=== PATIENT | female | born 1995 ===

== ENCOUNTER 2020-08-28 12:07 | Outpatient (CLI) | payer MEDICAID ==
[~2020-08-28] VITALS: Ht 157.5 cm; Wt 70.4 kg
[2020-08-28] MEDS ORDERED: CALCIUM CARBONATE 500 MG TAB.CHEW ONE (12:41)
[2020-08-28 12:49] LABS: AMPHETAMINE SCREEN, URINE Negative (Negative); BARBITURATE SCREEN, URINE Negative (Negative); BENZODIAZEPINE SCREEN, URINE Negative (Negative); CANNABINOID SCREEN, URINE Positive (Negative); COCAINE SCREEN, URINE Negative (Negative); METHADONE SCREEN, URINE Negative (Negative); OPIATE SCREEN, URINE Negative (Negative)
[2020-08-28 12:54] LABS: MICROSCOPIC INDICATED
[2020-08-28] MEDS ORDERED: ONDANSETRON 2MG/ML, 2ML IVPush PRN (13:00)
[2020-08-28] MEDS ORDERED: LACTATED RINGERS 1,000 ML IVBOLUS ONE (13:00)
[2020-08-28] MEDS ORDERED: D5%-LACTATED RINGERS 500 ML IV SCH (13:00)
[2020-08-28] MEDS ORDERED: FAMOTIDINE 20 MG TABLET ONE (14:05)
[2020-08-28] MEDS ORDERED: FAMOTIDINE 10 MG TAB PO ONE (14:30)
== END 2020-08-28 14:30 | disposition home or self-care (01) ==
LOC: LDOP 12:07
PROVIDERS: ATTEND Obstetrics & Gynecology
DX: O21.2 Late vomiting of pregnancy (principal); O26.893 Other specified pregnancy related conditions, third trimester; R19.7 Diarrhea, unspecified; Z3A.37 37 weeks gestation of pregnancy
CPT/HCPCS: 59025; 80307; 81001; 96360; 96361; J7120; J7121

== ENCOUNTER 2020-09-12 02:39 | Inpatient (IN) | payer MEDICAID ==
[~2020-09-12] VITALS: Ht 157.5 cm; Wt 73.0 kg
[2020-09-12] MEDS ORDERED: TERBUTALINE 1 MG/ML, 1ML SQ PRN (03:30)
[2020-09-12] MEDS ORDERED: FENTANYL PF 100 MCG/2ML IVPush PRN (03:30)
[2020-09-12] MEDS ORDERED: TERBUTALINE 1 MG/ML, 1ML IVPush PRN (03:30)
[2020-09-12] MEDS ORDERED: CALCIUM CARBONATE 500 MG TAB.CHEW PO PRN (03:30)
[2020-09-12] MEDS ORDERED: FENTANYL PF 100 MCG/2ML IV PRN (03:30)
[2020-09-12] MEDS ORDERED: ONDANSETRON 2MG/ML, 2ML IVPush PRN (03:30)
[2020-09-12] MEDS ORDERED: D5%-LACTATED RINGERS 1,000 ML IV SCH (03:30)
[2020-09-12] MEDS ORDERED: OXYTOCIN 30U/ 0.9% NaCL 500ML 500 ML IV PRN (03:30)
[2020-09-12] MEDS: LACTATED RINGERS 1,000 ML IV SCH ×2 (03:30→04:10)
[2020-09-12] MEDS ORDERED: NEWBORN KIT ONE (03:34)
[2020-09-12] MEDS ORDERED: MISOPROSTOL 200 MCG TABLET ONE (03:34)
[2020-09-12 03:45] LABS: BASOPHILS % (AUTO) 1 % (0-1); EOSINOPHILS % (AUTO) 1 % (1-7); LYMPHOCYTES % (AUTO) 15 % (22-44); MEAN CORPUSCULAR HEMOGLOBIN 27.4 pg (27.0-34.8); MEAN CORPUSCULAR HGB CONC 32.9 g/dL (32.4-35.8); MEAN PLATELET VOLUME 10.5 fL (7.4-10.4); MONOCYTES % (AUTO) 6 % (2-9); NEUTROPHILS % (AUTO) 78 % (42-75); PLATELET COUNT 298 x10^3/uL (130-400); RED BLOOD COUNT 3.76 x10^6/uL (3.82-5.3); RED CELL DISTRIBUTION WIDTH 14.7 % (9.6-15.2)
[2020-09-12 03:50] LABS: MD NO
[2020-09-12] MEDS ORDERED: BUPIVACAINE 0.25% ONE (04:01)
[2020-09-12] MEDS ORDERED: FENTANYL/BUPIV./NS/PF 250 ML EPIDCONT ONE (04:01)
[2020-09-12] MEDS ORDERED: LACTATED RINGERS 1,000 ML IVBOLUS PRN (04:30)
[2020-09-12] MEDS ORDERED: EPHEDRINE 50 MG/ML, 1ML IVPush PRN (04:30)
[2020-09-12] MEDS ORDERED: FENTANYL/BUPIV./NS/PF 250 ML EPIDCONT SCH (04:30)
[2020-09-12] MEDS ORDERED: LACTATED RINGERS 1,000 ML IV SCH (04:30)
[2020-09-12 09:56] LABS: AMPHETAMINE SCREEN, URINE Negative (Negative); BARBITURATE SCREEN, URINE Negative (Negative); BENZODIAZEPINE SCREEN, URINE Negative (Negative); OPIATE SCREEN, URINE Negative (Negative)
[2020-09-12 09:59] LABS: CANNABINOID SCREEN, URINE Positive (Negative); COCAINE SCREEN, URINE Negative (Negative); METHADONE SCREEN, URINE Negative (Negative)
[2020-09-12] MEDS ORDERED: SODIUM CITRATE/CITRIC ACID 15 ML UDC ONE (10:30)
[2020-09-12] MEDS ORDERED: METOCLOPRAMIDE 5 MG/ML, 2ML ONE (10:30)
[2020-09-12] MEDS ORDERED: OXYTOCIN 10 UNITS/ML, 1ML IM PRN (11:00)
[2020-09-12] MEDS ORDERED: ONDANSETRON 2MG/ML, 2ML IV PRN (11:00)
[2020-09-12] MEDS ORDERED: SIMETHICONE 80 MG CHEW TAB PO PRN (11:00)
[2020-09-12] MEDS ORDERED: METHYLERGONOVINE 0.2 MG/ML IM PRN (11:00)
[2020-09-12] MEDS ORDERED: ACETAMINOPHEN 325 MG TABLET PO PRN (11:00)
[2020-09-12] MEDS: OXYTOCIN 30U/ 0.9% NaCL 500ML 500 ML IV SCH ×2 (11:00→21:00)
[2020-09-12] MEDS ORDERED: MISOPROSTOL 200 MCG TABLET PR PRN (11:00)
[2020-09-12 13:45] VITALS: BP 137/77
[2020-09-12] MEDS: OXYcodone/APAP 5/325MG TABLET PO PRN ×2 (13:59→18:21)
[2020-09-12] MEDS: IBUPROFEN 600 MG TABLET PO PRN (13:59)
[2020-09-12 16:00] VITALS: BP 137/77
[2020-09-12 16:24] VITALS: BP 125/77
[2020-09-12 19:48] VITALS: BP 118/73
[2020-09-12 20:16] LABS: BASOPHILS % (AUTO) 1 % (0-1); EOSINOPHILS % (AUTO) 0 % (1-7); LYMPHOCYTES % (AUTO) 14 % (22-44); MEAN CORPUSCULAR HEMOGLOBIN 27.4 pg (27.0-34.8); MEAN CORPUSCULAR HGB CONC 32.6 g/dL (32.4-35.8); MEAN PLATELET VOLUME 9.9 fL (7.4-10.4); MONOCYTES % (AUTO) 5 % (2-9); NEUTROPHILS % (AUTO) 80 % (42-75); PLATELET COUNT 233 x10^3/uL (130-400); RED BLOOD COUNT 3.01 x10^6/uL (3.82-5.3); RED CELL DISTRIBUTION WIDTH 14.4 % (9.6-15.2)
[2020-09-12 20:21] LABS: MD NO
[2020-09-13 00:28] VITALS: BP 118/71
[2020-09-13] MEDS: IBUPROFEN 600 MG TABLET PO PRN ×3 (00:49→13:47)
[2020-09-13] MEDS: DOCUSATE 100 MG CAPSULE PO PRN ×2 (00:49→07:16)
[2020-09-13] MEDS: OXYcodone/APAP 5/325MG TABLET PO PRN ×5 (00:49→15:37)
[2020-09-13 04:08] VITALS: BP 117/79
[2020-09-13] MEDS: OXYTOCIN 30U/ 0.9% NaCL 500ML 500 ML IV SCH (07:00)
[2020-09-13] MEDS ORDERED: PRENATAL VIT/IRON/FA 1 EACH TABLET PO SCH (09:00)
[2020-09-13 09:22] VITALS: BP 120/74
[2020-09-13 11:50] VITALS: BP 140/87
[2020-09-13] MEDS ORDERED: IBUP-1222 PO (15:29)
== END 2020-09-13 15:56 | disposition home or self-care (01) | DRG 560 ==
LOC: LDOP 02:39 → LDIP 03:15 → 2NW 13:40
PROVIDERS: ADMIT Obstetrics & Gynecology; ATTEND Obstetrics & Gynecology
PROC: 0KQM0ZZ Repair Perineum Muscle, Open Approach (ICD-10-PCS; principal; 2020-09-12)
PROC: 10D07Z6 Extraction of Products of Conception, Vacuum, Via Natural or Artificial Opening (ICD-10-PCS; 2020-09-12)
PROC: 10907ZC Drainage of Amniotic Fluid, Therapeutic from Products of Conception, Via Natural or Artificial Opening (ICD-10-PCS; 2020-09-12)
PROC: 3E0R3BZ Introduction of Anesthetic Agent into Spinal Canal, Percutaneous Approach (ICD-10-PCS; 2020-09-12)
PROC: 00HU33Z Insertion of Infusion Device into Spinal Canal, Percutaneous Approach (ICD-10-PCS; 2020-09-12)
DX: O70.1 Second degree perineal laceration during delivery (principal); Z20.822 Contact with and (suspected) exposure to COVID-19; Z37.0 Single live birth; Z3A.39 39 weeks gestation of pregnancy
CPT/HCPCS: 36415; 80307; 85025; 86592; 86850; 86900; 87635; G0378; J3010; J2590; J3105; J7120